=== PATIENT | female | born 1965 | race Caucasian/White ===

== ENCOUNTER 2020-10-24 05:40 | Observation (INO) ==
--- NOTE | 2020-09-25 16:00 | PAT Medication Instructions ---
Medication Instructions Date of Service September 25, 2020 Home Medications coconut oil (bulk) 1 ea MISCELLANEOUS QAM darryl eaas-ikjwchyp-jbcyjzihs ac [[place] Oil] 1 cap PO QAM ibuprofen 600 mg PO QAM ASK your surgeon for instructions ibuprofen 600 mg PO QAM STOP taking 2 weeks before surgery If surgery is within 2 weeks, stop taking as soon as possible. darryl pshg-ucpewaly-mwossirfm ac [[place]age Oil] 1 cap PO QAM DO NOT take the morning of surgery coconut oil (bulk) 1 ea MISCELLANEOUS QAM Other Notes NOTHING TO EAT OR DRINK AFTER MIDNIGHT. If you have any questions please call us at [phone] or [phone] or [phone] or [phone]
--- NOTE | 2020-09-26 09:26 | Anesthesiology Consultation ---
Date of Service September 26, 2020 Assessment & Plan (1) Encounter for pre-operative examination: COVID Status: As of 09/26 assessment, patient denies travel to endemic area, known exposure/sick contacts, or symptoms of COVID19. Patient advised to adhere to social distancing guidelines, wear a mask in public and avoid large crowds or unnecessary travel in the 2 weeks leading up to surgery. Preoperative COVID19 testing to be completed prior to surgery per surgeon's arrangements (10/22 at [facility]). Patient encouraged to be extra cautious/conscientious with COVID precautions between COVID testing and surgery. Pt to get second COVID vaccine 10/10. Chart Review Chart Review: Acceptable Risk for Surgery and Patient seen in Pre Admission Testing Teaching & Discussion Instructed NPO after midnight before surgery, except medications with 15 cc of water. Medication instructions provided according to the PAT guidelines. History Surgery Operation Date: 10/24/20 11:40 Proposed Procedures p Right Total Shoulder Arthroplasty Leon - Travon White, Height/Weight Height: 5 ft 5 in Weight: 77.7 kg Allergies Allergy/AdvReac Type Severity Reaction Status Date / Time animal dander Allergy Intermediate SHORTNESS Verified 09/25/20 13:53 OF BREATH latex Allergy Mild RASH Verified 09/25/20 13:53 mold Allergy Unknown asthma Verified 09/25/20 13:53 symptoms Penicillins Allergy Unknown CHILD Verified 09/25/20 13:53 ALLERGY Dust Allergy Unknown asthma Uncoded 09/25/20 13:53 symptoms Medications Home Medications Medication Instructions Recorded Confirmed Last Taken coconut oil (bulk) 1 ea MISCELLANEOUS QAM 03/12/19 09/25/20 Unknown darryl jbqa-xdmxiphd-ddfnjroet ac 1 cap PO QAM 09/25/20 09/25/20 Unknown [[place] Oil] fluoxetine [Prozac] 20 mg PO HS 09/25/20 09/25/20 Unknown ibuprofen 600 mg PO QAM 09/25/20 09/25/20 Unknown Past Medical History Medical History Anxiety Asthma EXERCISE INDUCED-NO INHALERS Chronic back pain NECK Depression Osteoarthritis Exercise / Class Metabolic Activity II 4-5 Yardwork/Stairs/Walk up hill Past Family History Family History Mother Family history of reaction to anesthesia PONV SEVERE Grandmother (Maternal) Family history of diabetes mellitus Past Surgical History Surgical History Elective surgery CLAVICLE SURGERY H/O wrist surgery History of bilateral tubal ligation History of cholecystectomy History of colonoscopy History of elbow surgery R/L History of hysterectomy History of laparotomy MULTIPLE FOR ENDOMETRIOSIS History of shoulder surgery R/L History of sinus surgery History of vaginal surgery Nausea and vomiting after administration of anesthetic agent NAUSEA ONLY, HAS BEEN RELIEVED WITH SCOP PATCH Past Anesthesia History No Hx of Anesthesia Complications (other than nausea) and No Family Hx of Anesthesia Complications (other than PONV) History of PONV History of PONV (nausea only) and Hx of Motion Sickness Social History Smoking Status: Never smoker Do You Dip or Chew Tobacco: No Hx Alcohol Use: Yes Alcohol type: wine alcohol intake frequency: a few times a week Hx Substance Use: No Review of Systems Pt denies any recent chest pain, shortness of breath, palpitations, cough, fever, URI, or uncontrolled acid reflux. Physical Exam Vital Signs BP: 129/82 P: 72bpm SPO2: 99% RA T: 98.4 F R: 16 ENMT Mouth: + chipped teeth (lower R molar); no loose teeth Thyromental Distance: > or= 3.5 Finger Breadths Mallampati Class: II Neck normal visual inspection and + limited neck extension (mildly) Respiratory normal respiratory effort, lungs clear to auscultation Cardiovascular RRR, no murmur, no edema Lab Results Anesthesia Preop Results Results Anesthesia Widget: WBC 5.66 K/uL (4.8-10.8) 09/26/20 Hgb 13.6 g/dL (12.0-16.0) 09/26/20 Hct 40.4 % (37-47) 09/26/20 Plt 304 K/uL (130-400) 09/26/20 Na 136 mmol/L (136-145) 09/26/20 K 3.8 mmol/L (3.5-5.1) 09/26/20 Cl 104 mmol/L (98-107) 09/26/20 CO2 26 mmol/L (21-32) 09/26/20 BUN 12 mg/dl (7-18) 09/26/20 Creat 0.73 mg/dl (0.6-1.2) 09/26/20 Glucose Level 84 mg/dl (70-99) 09/26/20 PT 10.0 Seconds (9.0-12.0) 09/26/20 PTT 26.8 Seconds (21.0-31.0) 09/26/20 INR 1.0 (0.9-1.1) 09/26/20 Blood Type O Positive 09/26/20 Antibody Screen NEGATIVE 09/26/20 Testing Electrocardiogram Date: 09/26/20 Findings: + SB @ (59bpm) Minor nonspecific T wave abnormality anterior leads. Compared to EKG of 08/29/2017, minor nonspecific T wave abnormality in anterior leads is now present. Chest X-Ray Date: 09/26/20 Findings: + NAD
--- NOTE | 2020-10-23 06:53 | History & Physical Report ---
Date of Service October 23, 2020 Assessment & Plan (1) Rotator cuff tear, right: We will proceed with a right reverse shoulder replacement. Postoperatively she will be kept overnight in the hospital for postoperative medical management. She plans to use energy physical therapy upon discharge. History of Present Illness Chief Complaint: Chronic retracted right rotator cuff tear. Primary Care Provider: Sienna Collier DO Lisbet is a pleasant 55-year-old female who is been doing with chronic worsening right shoulder pain. I did a right shoulder arthroscopy for decompression and biceps tenodesis in 2017. She did well initially postoperatively. Unfortunately her symptoms have worsened over the past few years. She denies any traumas. She is taken a lot of time off of work due to her shoulder pain. She has difficulty reaching away from her body or up overhead. She has become more more frustrated with her shoulder. I sent her for an MRI and the MRI shows a chronic retracted supraspinatus tear and some mild to moderate arthritis. We talked extensively about it in the office. We talked about superior capsular reconstruction. We also talked about reverse shoulder replacement. She was very interested in the reverse shoulder replacement. We talked about the risks and benefits including her age and she elected to proceed.. Allergies Allergy/AdvReac Type Severity Reaction Status Date / Time animal dander Allergy Intermediate SHORTNESS Verified 09/25/20 13:53 OF BREATH latex Allergy Mild RASH Verified 09/25/20 13:53 mold Allergy Unknown asthma Verified 09/25/20 13:53 symptoms Penicillins Allergy Unknown CHILD Verified 09/25/20 13:53 ALLERGY Dust Allergy Unknown asthma Uncoded 09/25/20 13:53 symptoms Home Medications Medication Instructions Recorded Confirmed Type coconut oil (bulk) 1 ea MISCELLANEOUS QAM 03/12/19 09/25/20 History darryl iewm-dnhcyzjt-cmpvbnmdq ac 1 cap PO QAM 09/25/20 09/25/20 History [[place] Oil] fluoxetine [Prozac] 20 mg PO HS 09/25/20 09/25/20 History ibuprofen 600 mg PO QAM 09/25/20 09/25/20 History Past Med/Surg History Medical History Anxiety Asthma EXERCISE INDUCED-NO INHALERS Chronic back pain NECK Depression Osteoarthritis Surgical History Elective surgery CLAVICLE SURGERY H/O wrist surgery History of bilateral tubal ligation History of cholecystectomy History of colonoscopy History of elbow surgery R/L History of hysterectomy History of laparotomy MULTIPLE FOR ENDOMETRIOSIS History of shoulder surgery R/L History of sinus surgery History of vaginal surgery Nausea and vomiting after administration of anesthetic agent NAUSEA ONLY, HAS BEEN RELIEVED WITH SCOP PATCH Family History Mother Family history of reaction to anesthesia PONV SEVERE Grandmother (Maternal) Family history of diabetes mellitus Social History Smoking Status: Never smoker Second Hand Exposure: No; Hx Alcohol Use: Yes Alcohol type: wine Hx Substance Use: No Preferred Language: Bulgarian Communication Ability: Effective Motor Polarizer Required: No Beliefs That Will Affect Care: None Current Living Situation: Spouse current occupational status: employed current occupation: [employer] Feels Safe at Home: Yes Assistive Devices: Glasses Review of Systems All systems reviewed & are unremarkable except as noted in HPI & below. Physical Exam On physical examination of the right shoulder, she cannot do any active forward elevation in the office. Passively I can go a bit further but she does not get much effort because she is having so much pain. 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 She is a lot of pain in the subacromial space.. Constitutional WD/WN, vitals as above Eyes PERRL, conjunctivae normal, anicteric sclerae ENMT external ear and nose normal, oropharynx normal Neck trachea midline, no thyromegaly Respiratory normal respiratory effort Cardiovascular RRR, no murmur, no edema Gastrointestinal (Abdomen) normal bowel sounds, soft, nontender, no hepatosplenomegaly Psychiatric A+Ox3, euthymic affect Results & Data Results & Data Laboratory Results . Diagnostic Findings MRI of the right shoulder show some mild to moderate arthritis and a chronic retracted tear of the supraspinatus.. PG Care Time/CCT Total # of Minutes Spent Total Time Spent with Patient: Total time spent is greater than 50% in coordination of care (as documented) at patient's floor/unit and/or counseling patient: Coding Level of Care Code None Diagnoses Rotator cuff tear, right M75.101
[2020-10-24] MEDS ORDERED: ROPIVACAINE 0.5% HCL/PF 150 MG, BUPIVACAINE 0.75% MPF 20 ML, EPINEPHrine 30MG/30ML (OR ... INSTIL SCH (06:00)
[2020-10-24] MEDS ORDERED: FAMOTIDINE 20 MG TAB PO SCH ×2 (06:00)
[2020-10-24] MEDS ORDERED: dexAMETHasone 4 MG TAB PO SCH ×2 (06:00)
[2020-10-24] MEDS ORDERED: TRANEXAMIC ACID 1,000 MG **IV Pre-op IV SCH ×2 (06:00)
[2020-10-24] MEDS ORDERED: ceFAZolin 1000MG 1,000 MG/7.5 ML SYR IV SCH (06:00)
[2020-10-24] MEDS ORDERED: LR 60ML/HR IV SCH ×2 (06:00)
[2020-10-24] MEDS ORDERED: Scopolamine 1 MG TDSY TD SCH (06:00)
[2020-10-24] MEDS ORDERED: TRANEXAMIC ACID 1,000 MG **IV Intra-op IV SCH ×2 (06:00)
[2020-10-24] MEDS ORDERED: GABAPENTIN 600 MG DOSE PO SCH ×2 (06:00)
[2020-10-24] MEDS ORDERED: ACETAMINOPHEN 500 MG TAB PO SCH ×2 (06:00)
[2020-10-24] MEDS ORDERED: SUCCINYLCHOLINE CHLORIDE 20 MG/ML 10 ML VIAL IV ONE (06:26)
[2020-10-24] MEDS ORDERED: ONDANSETRON INJ 2 MG/ML 2 ML VIAL ONE (06:26)
[2020-10-24] MEDS ORDERED: DEXAMETHASONE SOD INJ 4 MG/ML VIAL ONE (06:26)
[2020-10-24] MEDS ORDERED: PROPOFOL IV EMULSION 10 MG/ML 20 ML VIAL IV ONE (06:26)
[2020-10-24] MEDS ORDERED: MIDAZOLAM HCL 1 MG/ML 2ML VIAL ONE (06:26)
[2020-10-24] MEDS ORDERED: fentaNYL citrate 100 MCG/2 ML VIAL ONE (06:26)
[2020-10-24] MEDS ORDERED: BUPIVACAINE 0.5 % 5 MG/1 ML PF 10ML VIAL ONE (06:28)
--- NOTE | 2020-10-24 06:36 | History & Physical Bridge Note ---
Date of Service October 24, 2020 History & Physical Bridge Note I have examined the patient, reviewed the History & Physical and in the interval since the performance of the History & Physical I have noted the following changes of clinical significance: no changes noted
[2020-10-24] MEDS ORDERED: ePHEDrine sulfate 50 MG/ML AMP IV PRN (07:03)
[2020-10-24] MEDS ORDERED: ONDANSETRON INJ 2 MG/ML 2 ML VIAL IV PRN ×2 (07:03→11:14)
[2020-10-24] MEDS ORDERED: fentaNYL citrate 100 MCG/2 ML VIAL IV PRN (07:03)
[2020-10-24] MEDS ORDERED: ATROPINE SULFATE 0.1 MG/ML 10ML SYR IV PRN (07:03)
[2020-10-24] MEDS ORDERED: ORTHO JOINT ANESTHETIC ONE (07:04)
[2020-10-24] MEDS ORDERED: PHENYLEPHRINE 100MCG/ML 5ML SYR ONE (08:25)
[2020-10-24] MEDS ORDERED: ePHEDrine sulfate 50 MG/ML SYR ONE (08:25)
--- NOTE | 2020-10-24 09:19 | Operative Report ---
PG Post Operative Report Pre & Post Diagnosis Operation Date: 10/24/20 07:55 Pre-Op Diagnosis: Rotator cuff arthropathy of the right shoulder Postoperative diagnosis: Rotator cuff arthropathy of the right shoulder I identified the patient and participated in the time-out.: Yes Procedure Operation Date: 10/24/20 07:55 Actual Procedures p Right Reverse Total Shoulder Arthroplasty(Right) - Travon White DO Surgeon Travon White, Business Proposal Rep Travon Valentine PAC Estimated Blood Loss 150 Findings Consistent with Post-Op Diagnosis Specimens Right humeral head Complications none Disposition Disposition: Recovery Room Indications Lisbet is a pleasant 55-year-old female has been dealing with chronic increasing right shoulder pain. MRI and clinical examination were mostly diagnostic for chronic retracted supraspinatus tear. There is little arthritis on the humeral head. After failing conservative treatment, and after multiple discussions in the office regarding her younger age, she wanted to proceed with a right reverse shoulder arthroplasty. Description of Procedure Implants used: I used a Biomet Comprehensive reverse total shoulder arthroplasty system with a size 9 press fit micro humeral stem, a +3 offset humeral tray and a standard humeral bearing, 25 mm small augment baseplate with a 6.5 mm central screw and superior and inferior locking screws, and a size 36 mm eccentric glenosphere. Lisbet arrived at [facility] for the above procedure. She was seen in the preoperative holding area and the operative extremity was identified and signed. She was given a preoperative antibiotic, TXA, and an interscalene nerve block. She was taken back to the operating room, laid on table in supine position, and put under general anesthesia. She was then put into the beachchair position. The shoulder was then prepped and draped in sterile fashion. A timeout was done and the patient and the operative extremity was properly identified. A deltopectoral approach was used. Dissection was taken down through the fascia and the deltoid was retracted laterally and the conjoined tendon was retracted medially. The anterior shoulder was exposed. The biceps tendon was absent from the previous open biceps tenodesis. The subscapularis was then directly released off the lesser tuberosity with a peel technique. The inferior capsule was released and the humeral head was dislocated. A canal finding reamer was sent down the center of the humeral canal. Sequential reaming up to a size 9 reamer was done. Off that reamer, a proximal humeral resection guide was placed. The proximal humerus was resected at 135 of inclination and 25 of retroversion. Osteophytes were then removed and the glenoid was exposed. Time was spent doing a complete capsular and labral release. The glenoid guide was then placed in the inferior aspect of the glenoid. A 3.2 mm Steinmann pin was then placed into the glenoid vault at 10 of inclination. The glenoid baseplate was then reamed. The final size 25 mm small augment baseplate was then impacted in the place. A 6.5 mm central screw was then placed followed by superior and inferior locking screws. A 36 mm eccentric glenosphere was then impacted into place. Surrounding soft tissues were then injected with 100 cc an orthopedic pain control cocktail. The proximal humerus was then exposed. Sequential broaching of the humerus up to a size 9 broach was done. Off that broach a +3 offset humeral tray was trialed. The shoulder was then reduced, brought through a full range of motion, and felt to be stable. The shoulder was then dislocated and the broach was removed. The final size 9 micro press-fit humeral stem was then impacted into place. A standard humeral bearing was then snapped onto a +3 offset humeral tray. The humeral tray was then impacted onto the humeral stem. The shoulder was once again reduced, brought through a full range of motion, and felt to be stable. The subscapularis was then tenodesed back to the lesser tuberosity with transosseous FiberWire sutures and side to side sutures with the arm in 45 of external rotation. A dilute betadyne lavage was then done for 3 minutes. The joint was then irrigated with normal saline solution. Hemostasis was obtained. The interval was closed with 2-0 Vicryl suture. The skin was then closed with 2-0 Vicryl and monique. A Silverlon dressing was placed and the arm was rested in a regular arm sling. She was then extubated and transferred to a hospital bed. She taken to the postanesthesia care unit in stable condition. She tolerated the procedure well. Travon Valentine PA-C, was present for the entire procedure. He was critical for patient positioning, prepping, draping, retraction exposure, wound closure and application of sterile dressing. I attest to the content of the Intraoperative Record and any orders documented therein. Any exceptions are noted below.
--- NOTE | 2020-10-24 10:20 | XRay Report ---
XR shoulder RT min 2V routine CLINICAL HISTORY: Post shoulder surgery COMPARISON: Right shoulder radiographs September 10, 2020. FINDINGS: Alignment of the reverse total right shoulder arthroplasty is anatomic. There are skin sta ples. There is no periprosthetic fracture. No unexpected radiopaque foreign bodies present. Right renee ast implant is incidentally noted. IMPRESSION: Expected findings following total right shoulder arthroplasty. ACT 112: Negative or not required by law. Electronically signed by: Karlos Kovacs M.D. 10/24/2020 10:18 AM
[2020-10-24] MEDS ORDERED: oxyCODONE HCL IR 5 MG TAB (IMMEDIATE RELEASE) PO PRN (11:14)
[2020-10-24] MEDS ORDERED: METOCLOPRAMIDE HCL INJ 5 MG/ML 2 ML VIAL IV PRN (11:14)
[2020-10-24] MEDS ORDERED: bisacodyL 10 MG SUPP PR PRN (11:14)
[2020-10-24] MEDS ORDERED: HYDROmorphone INJ 0.5 MG/0.5 ML SYR IV PRN (11:14)
[2020-10-24] MEDS ORDERED: MAGNESIUM HYDROXIDE SUSP 30 ML UDC PO PRN (11:14)
[2020-10-24] MEDS ORDERED: NALOXONE HCL 0.4 MG/1 ML VIAL/CARP IV PRN (11:14)
[2020-10-24] MEDS: ANCEF - ALLERGY NOTED TO ORDERED MEDICATION SCH ×2 (11:15→11:16)
[2020-10-24] MEDS: SODIUM CHLORIDE 0.9% 1000ML 1,000 ML IV SCH ×2 (12:45→20:47)
[2020-10-24] MEDS: KETOROLAC 30 MG/ML VIAL IV SCH ×3 (12:48→23:35)
--- NOTE | 2020-10-24 14:23 | Anesthesiology Progress Note ---
Date of Service October 24, 2020 Anesthesia Post Procedure Vital Signs Vital Signs: Temp Pulse Pulse Resp BP Pulse Ox 10/24/20 12:50 107 H 16 129/81 94 10/24/20 11:51 36.8 C 89 16 109/69 93 10/24/20 11:20 36.5 C 87 17 116/74 92 10/24/20 10:50 36.4 C L 100 H 16 122/81 91 10/24/20 10:38 93 H 20 115/74 93 10/24/20 10:30 36.3 C L 91 H 18 112/76 93 10/24/20 10:20 89 17 116/81 94 10/24/20 10:00 90 20 140/91 96 10/24/20 09:50 86 20 135/87 100 10/24/20 09:40 92 H 18 148/97 H 100 10/24/20 09:36 36.1 C L 99 H 20 136/97 99 10/24/20 06:10 37 C 74 18 121/81 98 Transfer of Care Handoff Completed per policy Notes Mental Status: alert / awake / arousable and participated in evaluation Patient Amnestic to Procedure: Yes Nausea / Vomiting: adequately controlled Pain: adequately controlled Airway Patency, RR, SpO2: stable & adequate BP & HR: stable & adequate Hydration State: stable & adequate Anesthetic Complications: no major complications apparent and Pt Satisfied with anesthetic care
[2020-10-24] MEDS: ACETAMINOPHEN 500 MG TAB PO SCH ×2 (14:49→20:50)
[2020-10-24] MEDS ORDERED: Scopolamine CHECK PATCH PLACEMENT SCH (16:00)
[2020-10-24] MEDS: ceFAZolin 2000MG 2,000 MG/15 ML SYR IV SCH ×2 (17:56→23:35)
[2020-10-24] MEDS: DOCUSATE SODIUM 100 MG CAP PO SCH (20:49)
[2020-10-24] MEDS ORDERED: FLUoxetine HCL 20 MG CAP PO SCH (21:00)
[2020-10-24] MEDS ORDERED: SENNA 8.6 MG TAB PO SCH (21:00)
[2020-10-25] MEDS: KETOROLAC 30 MG/ML VIAL IV SCH (05:59)
[2020-10-25] MEDS: ACETAMINOPHEN 500 MG TAB PO SCH (05:59)
[2020-10-25] MEDS ORDERED: FLUoxetine HCL 20 MG CAP PO SCH (06:00)
--- NOTE | 2020-10-25 07:49 | Orthopedic Progress Note ---
Date of Service October 25, 2020 Assessment & Plan (1) Status post reverse total replacement of right shoulder: Overall she is doing well. She is not any much pain in the right shoulder. She will be seen by physical therapy today for ambulation and range of motion exercises. She can be discharged home later today. She will follow- up with orthopedics in 2 weeks. Dash Frausto was seen and examined at bedside this morning. Overall she doing very well. She is not having any pain in the right shoulder. She was able to get some sleep last night. She has no complaints.. Review of Systems All systems reviewed & are unremarkable except as noted in HPI & below. Physical Exam On physical examination of the right shoulder, the dressing is clean and dry. She is wearing a sling as instructed. The nerve block is still in effect.. Results & Data Results & Data Laboratory Results . Diagnostic Findings Postoperative x-rays of the right shoulder show the prosthesis to be in anatomic alignment without any evidence of fracture, dislocation, or loosening. PG Care Time/CCT Total # of Minutes Spent Total Time Spent with Patient: Total time spent is greater than 50% in coordination of care (as documented) at patient's floor/unit and/or counseling patient: Coding Level of Care Code 76654 Post Operative Follow-Up Diagnoses Status post reverse total replacement of right shoulder Z96.611
--- NOTE | 2020-10-25 07:50 | Discharge Summary ---
Date of Service October 25, 2020 Admission HPI (Per Admitting) Lisbet is a pleasant 55-year-old female who is been doing with chronic worsening right shoulder pain. I did a right shoulder arthroscopy for decompression and biceps tenodesis in 2017. She did well initially postoperatively. Unfortunately her symptoms have worsened over the past few years. She denies any traumas. She is taken a lot of time off of work due to her shoulder pain. She has difficulty reaching away from her body or up overhead. She has become more more frustrated with her shoulder. I sent her for an MRI and the MRI shows a chronic retracted supraspinatus tear and some mild to moderate arthritis. We talked extensively about it in the office. We talked about superior capsular reconstruction. We also talked about reverse shoulder replacement. She was very interested in the reverse shoulder replacement. We talked about the risks and benefits including her age and she elected to proceed.. Admission Exam (Per Admitting) On physical examination of the right shoulder, she cannot do any active forward elevation in the office. Passively I can go a bit further but she does not get much effort because she is having so much pain. 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 She is a lot of pain in the subacromial space.. Principal Diagnosis Same as "Discharge Diagnosis" noted below under Discharge Instructions. Discharge Exam On physical examination of the right shoulder, the dressing is clean and dry. She is wearing a sling as instructed. The nerve block is still in effect.. Discharge Data Procedures Performed Operation Date: 10/24/20 07:55 Actual Procedures p Right Reverse Total Shoulder Arthroplasty(Right) - Travon White DO Ordered Studies 10/24/20 05:00 US - OR guided needle [facility] Routine Hospital Course (1) Status post reverse total replacement of right shoulder: Patient Ahmet October 24, 2020 Lisbet arrived at [facility] and underwent a right reverse shoulder replacement without complication. She had a general anesthetic and a right interscalene nerve block. Postoperatively sling and transferred to the general orthopedic floors. Her hospital course was uneventful. On postop day #1 her vital signs were stable and her pain was well controlled. She was able to position his gait well with physical therapy doing ambulation and range of motion exercises. She was then discharged home. She will follow-up with orthopedics in 2 weeks. PG Care Time/CCT Total # of Minutes Spent Total Time Spent with Patient: Total time spent is greater than 50% in coordination of care (as documented) at patient's floor/unit and/or counseling patient: Discharge Plan Discharge Items Patient Disposition: Home - Home Health Services Reason For Visit: DJD Shoulder Rotator Cuff Tear Right Discharge Diagnosis: Right reverse shoulder replacement Activity: As commented below Non-emergency contact: Surgeon Call non-emergency contact if: your wound has increased redness and your wound has increased drainage Follow-up/Referrals: Sienna Collier DO [Primary Care Provider] - Diet: Regular Addtl Attending Provider Instructions: Activity and Therapy Recommendations: * If you are using [facility] then therapy will be provided at your home until they feel you have accomplished all of your goals. * If you are using [facility] then Physical Therapy will be provided until they feel you are ready to start Outpatient Physical Therapy. * If you are not using home therapy then Outpatient Physical Therapy should start about 3-5 days from your day of surgery. Therapy will last about 8-12 weeks * Wear your sling for 3 weeks, unless otherwise instructed. You may remove your sling to shower and to dress, but otherwise, you should be in your sling at all times, including while sleeping * The shoulder replacement is very stable and you can use your hand while in the sling * You were shown a series of exercises in the hospital. Do these exercises daily including the exercises you were shown in physical therapy. Medications: * Narcotic You will likely be sent home from the hospital with a prescription for the narcotic pain medication that worked best throughout your stay. * Other medications may be prescribed for specific circumstances. If you have any questions, please call the office at . * Resume previous home medications unless otherwise instructed Dressing Care: Leave the Silverlon dressing in place for 7 days. After 7 days you may remove the dressing. If the incision is not draining then you may leave the monique open to air. If there is a little bit of drainage or if the monique are getting stuck on your clothing then cover the incision with a dry dressing. The monique will be removed at your 2 week follow-up appointment. Showering: You may shower with the Silverlon dressing in place. Do not let the shower spray hit the dressing directly. Pat the Silverlon dressing dry. If the dressing becomes wet underneath, then simply remove the dressing. Keep the incision dry until you are 7 days out from the day of surgery. After 7 days you may remove the Silverlon dressing and shower with the monique exposed. Let soapy water run over the monique and pat them dry. Do not scrub or soak the incision. Things To Watch For: * Drainage from the incision site that occurs more than one week after your surgery. * Increased redness at the incision site. * Fever above 102 degrees Fahrenheit. * Unusual chest pain or shortness of breath. * Call [facility] at with any of the above problems Follow-Up Visit: Follow-up with Dr. White's PA (Travon Valentine) 2-3 weeks after your day of surgery. He will remove your monique and answer any questions. If you have any additional questions or concerns, Dr White is usually in the office at the same time and will be available An appointment was probably scheduled when you signed-up for surgery in the office. If you have any questions call More detailed instructions as well as Frequently Asked Questions were provided in a folder by our office when you signed-up for surgery. Please review these instructions when you get home. If you have any further questions or concerns, please feel free to call the office at [phone] Pending Studies at Discharge: No Stand-Alone Forms: [facility], Smoking Cessation Medications and DC Order Prescriptions: New oxycodone 5 mg Tablet 5 mg PO Q4H PRN (Reason: pain) Qty: 30 RF: 0 Continued coconut oil (bulk) oil 1 ea miscellaneous QAM RF: 0 ibuprofen 600 mg Tablet 600 mg PO QAM RF: 0 fluoxetine [Prozac] 20 mg Capsule 20 mg PO 0600 RF: 0 [place] Oil 1,000 mg Capsule 1 cap PO QAM RF: 0 Discharge Orders: Discharge Order (Routine); Ordered 10/25/20 Ordered By: Travon White Admission Data Admit Date/Time: 10/24/20 09:35 Attending Provider: Travon White Admit Provider: Travon White Primary Care Provider: Sienna Collier
[2020-10-25] MEDS ORDERED: dexAMETHasone 4 MG TAB PO SCH (08:00)
[2020-10-25] MEDS: DOCUSATE SODIUM 100 MG CAP PO SCH (08:47)
[2020-10-25] MEDS ORDERED: MULTIVITAMIN TAB PO SCH (09:00)
== END 2020-10-25 10:37 | disposition home or self-care (01) ==
LOC: ASU 05:40 → 3E 09:35 → INTOOBSV 09:35

== ENCOUNTER 2022-07-30 08:26 | Observation (INO) ==
--- NOTE | 2022-06-28 10:06 | PAT Medication Instructions ---
Medication Instructions Date of Service June 28, 2022 Home Medications Collagen Chews 2 tab PO QAM ibuprofen 125 mg-acetaminophen 250 mg tablet (Advil Dual Action) 1 tab PO Q8H PRN ASK your surgeon for instructions ibuprofen 125 mg-acetaminophen 250 mg tablet (Advil Dual Action) 1 tab PO Q8H PRN STOP taking 2 weeks before surgery (or as soon as possible if surgery is within 2 weeks) Collagen Chews 2 tab PO QAM Other Notes NOTHING TO EAT OR DRINK AFTER MIDNIGHT. If you have any questions please call us at [phone] or [phone] or [phone] or [phone]
--- NOTE | 2022-07-08 09:51 | Anesthesiology Consultation ---
Date of Service July 08, 2022 Assessment & Plan (1) Encounter for pre-operative examination: Chart Review Chart Review: Acceptable Risk for Surgery and Patient seen in Pre Admission Testing - Pt is NOT an Outpatient Joint candidate due to no motivation to go home same day Per [facility] appt on 07/08/22, patient had recent cold (cough and congestion- symptoms have since resolved). Pt did test Covid negative with home test 06/25/22. Denies any recent travel or large group activities. Pt denies any Covid exposures in the past 21 days. Denies testing Covid positive in the past 90 days. Pt is vaccinated for Covid. Preop Covid testing done (due to symptoms and patient being inpatient status) at [facility] 07/08/22= negative. Educated on importance of using Covid precautions one week prior to surgery Right Anterior NEHA 07/24/21= Done initially under SAB at L3-4 with 1 attempt. Pt converted to GA with LMA #4, atraumatic LMA placement. Teaching & Discussion Pre-Anesthesia Teaching/Discussion Notes: Instructed NPO after midnight before surgery,except medications with 15 cc of water. Medication instructions prov ided according to the [facility] guidelines. History Surgery Operation Date: 07/30/22 11:45 Proposed Procedures p Left Anterior Total Hip Arthroplasty - Travon White, DO Height/Weight Height: 5 ft 5 in Weight: 83.3 kg Allergies Allergy/AdvReac Type Severity Reaction Status Date / Time mold Allergy Severe asthma Verified 07/08/22 09:44 symptoms animal dander Allergy Unknown SHORTNESS Verified 06/28/22 07:43 OF BREATH house dust Allergy Unknown asthma Verified 06/28/22 07:43 symptoms latex Allergy Unknown RASH Verified 06/28/22 07:43 Penicillins Allergy Unknown UNSURE , Verified 06/28/22 07:43 CHILD ALLERGY Medications Home Medications Medication Instructions Recorded Confirmed Last Taken Collagen Chews 2 tab PO QAM 06/30/21 06/28/22 07/23/21 07:00 ibuprofen 125 mg-acetaminophen 250 1 tab PO Q8H PRN Pain 06/28/22 06/28/22 Unknown mg tablet (Advil Dual Action) Past Medical History Medical History Anxiety Arthritis NECK/LIMTED ROM Asthma - EXERCISE/ENVIRONMENTAL INDUCED-NO INHALERS Coughing at night- secondary pets in bed Depression Fibromyalgia DX WITH 20 YR AGO Stable - mild muscle pain Scoliosis Exercise / Class Metabolic Activity II 4-5 Yardwork/Stairs/Walk up hill (one flight of stairs - no chest pain or SOB ) Past Family History Family History Mother Family history of reaction to anesthesia PONV SEVERE Grandmother (Maternal) Family history of diabetes mellitus Other Family history of lung cancer Family history of throat cancer Past Surgical History Surgical History Elective surgery CLAVICLE SURGERY H/O wrist surgery History of bilateral tubal ligation History of cholecystectomy History of colonoscopy History of elbow surgery R/L History of hysterectomy History of laparotomy MULTIPLE FOR ENDOMETRIOSIS History of reverse total replacement of right shoulder joint OCTOBER 24 2020 History of shoulder surgery R/L History of sinus surgery History of vaginal surgery Nausea and vomiting after administration of anesthetic agent NAUSEA ONLY, HAS BEEN RELIEVED WITH SCOPE PATCH Status post right hip replacement Past Anesthesia History No Hx of Anesthesia Complications (with exception to PONV ) and No Family Hx of Anesthesia Complications (with exception to mother - PONV ) History of PONV History of PONV (improved with scopolamine patch and anti nausea cocktail - scop patch ordered for DOS) and Hx of Motion Sickness Social History Smoking Status: Never smoker Do You Dip or Chew Tobacco: No Hx Alcohol Use: No Hx Substance Use: No substance use type: does not use Review of Systems Patient denies chest pain, shortness of breath, dyspnea on exertion, reflux, cough, wheezing, palpitations. No hx of seizures, stroke, SD, apnea/snoring. No hx of blood clots or blood transfusions Physical Exam Vital Signs VITALS BP 117/82 P 96bpm TEMP 98.2 SP02 97% RESP 6 Constitutional no acute distress ENMT Mouth: no TMJ clicking Thyromental Distance: > or= 3.5 Finger Breadths Mallampati Class: III Neck + limited neck extension Respiratory normal respiratory effort; no respiratory distress Auscultation: lungs clear to auscultation bilaterally; no wheezes Cardiovascular Rate/Rhythm: regular rate and regular rhythm Heart Sounds: no murmur Vessels: no carotid bruit Musculoskeletal Spine: no pain with cervical ROM Extremities: extremities normal to inspection Psychiatric Orientation: alert Lab Results Anesthesia Preop Results Results Anesthesia Widget: WBC 8.29 K/ul (4.8-10.8) 07/08/22 Hgb 14.8 g/dl (12.0-16.0) 07/08/22 Hct 42.8 % (37.0-47.0) 07/08/22 Plt 379 K/uL (130-400) 07/08/22 Na 134 mmol/L (136-145) L 07/08/22 K 4.0 mmol/L (3.5-5.1) 07/08/22 Cl 100 mmol/L (98-107) 07/08/22 CO2 28 mmol/L (21-32) 07/08/22 BUN 17 mg/dl (6-23) 07/08/22 Creat 0.73 mg/dl (0.6-1.2) 07/08/22 Glucose Level 90 mg/dl (70-99(Fasting)) 07/08/22 PT 10.2 Seconds (9.0-12.0) 07/08/22 PTT 27.3 Seconds (21.0-31.0) 07/08/22 INR 1.0 (0.9-1.1) 07/08/22 Blood Type O Positive 07/08/22 Antibody Screen NEGATIVE 07/08/22 Testing Electrocardiogram Date: 07/08/22 Findings: + NSR @ (79bpm) When compared to EKG from Feb 12, 2022- no significant change as found per cardio Chest X-Ray Date: 02/12/22 Findings: + NAD Stress Test Date: 02/12/22 Type: exercise (ECHO ) Resting EF: 55 to 60% Resting LV Function: normal Valvular Disease: no significant valvular disease Stress echocardiogram is negative for inducible ischemia at the level of exercise achieved, with normal EKG and echocardiographic response to exercise. 6 METS achieved. MPHR 86%. Exercise test was terminated due to right hip pain having achieved target heart rate. Patient describes chest tightness with deep inspiration in the postexercise recovery interval, this is reminiscent of her longstanding asthma symptoms and was atypical in character for angina. Other Testing Chest CTA 02/12/22= No evidence of pulmonary embolism. No acute abnormalities are seen..
--- NOTE | 2022-07-29 13:32 | History & Physical Report ---
Date of Service July 29, 2022 Assessment & Plan (1) Osteoarthritis of left hip: We will proceed with a left anterior total of arthroplasty. Postoperatively she will be started on aspirin for DVT prophylaxis and kept overnight in the hospital for postoperative medical management. She plans [facility] upon discharge. History of Present Illness Chief Complaint: Osteoarthritis of the left hip. Primary Care Provider: Sienna Collier DO Lisbet is a pleasant 57-year-old female who is well known to me. I did a right hip replacement on her in July 2021 and she has done very well with that. Unfortunately, she is dealing with chronic worsening left hip pain. X-rays have shown worsening osteoarthritis of her left hip. After failing conservative treatment, she has elected proceed with a left total hip arthroplasty. Allergies Allergy/AdvReac Type Severity Reaction Status Date / Time mold Allergy Severe asthma Verified 07/08/22 09:44 symptoms animal dander Allergy Unknown SHORTNESS Verified 06/28/22 07:43 OF BREATH house dust Allergy Unknown asthma Verified 06/28/22 07:43 symptoms latex Allergy Unknown RASH Verified 06/28/22 07:43 Penicillins Allergy Unknown UNSURE , Verified 06/28/22 07:43 CHILD ALLERGY Home Medications Medication Instructions Recorded Confirmed Type Collagen Chews 2 tab PO QAM 06/30/21 06/28/22 History ibuprofen 125 mg-acetaminophen 250 1 tab PO Q8H PRN Pain 06/28/22 06/28/22 History mg tablet (Advil Dual Action) Past Med/Surg History Medical History Anxiety Arthritis NECK/LIMTED ROM Asthma - EXERCISE/ENVIRONMENTAL INDUCED-NO INHALERS Coughing at night- secondary pets in bed Depression Fibromyalgia DX WITH 20 YR AGO Stable - mild muscle pain Scoliosis Surgical History Elective surgery CLAVICLE SURGERY H/O wrist surgery History of bilateral tubal ligation History of cholecystectomy History of colonoscopy History of elbow surgery R/L History of hysterectomy History of laparotomy MULTIPLE FOR ENDOMETRIOSIS History of reverse total replacement of right shoulder joint OCTOBER 24 2020 History of shoulder surgery R/L History of sinus surgery History of vaginal surgery Nausea and vomiting after administration of anesthetic agent NAUSEA ONLY, HAS BEEN RELIEVED WITH SCOPE PATCH Status post right hip replacement Family History Mother Family history of reaction to anesthesia PONV SEVERE Grandmother (Maternal) Family history of diabetes mellitus Other Family history of lung cancer Family history of throat cancer Social History Smoking Status: Never smoker Second Hand Exposure: No; Hx Alcohol Use: No Hx Substance Use: No Preferred Language: Faroese Communication Ability: Effective Collar Packer Required: No Beliefs That Will Affect Care: None marital status: Current Living Situation: Spouse current occupational status: employed current occupation: [employer] Feels Safe at Home: Yes Assistive Devices: Glasses Review of Systems All systems reviewed & are unremarkable except as noted in HPI & below. Physical Exam On physical examination of the left hip, she has decreased range of motion. She has pain with internal and external rotation. All of her pain is located in the groin.. Constitutional WD/WN, vitals as above Eyes PERRL, conjunctivae normal, anicteric sclerae ENMT external ear and nose normal, oropharynx normal Neck trachea midline, no thyromegaly Respiratory normal respiratory effort, lungs clear to auscultation Cardiovascular RRR, no murmur, no edema Gastrointestinal (Abdomen) normal bowel sounds, soft, nontender, no hepatosplenomegaly Skin no rashes, warm and dry Psychiatric A+Ox3, euthymic affect Results & Data Results & Data Laboratory Results . Diagnostic Findings X-rays of the left hip show advanced osteoarthritis with joint space narrowing, osteophyte formation, and [id number] articulation. PG Care Time/CCT Total # of Minutes Spent Total Time Spent with Patient: Total time spent is greater than 50% in coordination of care (as documented) at patient's floor/unit and/or counseling patient: Coding Level of Care Code None Diagnoses Osteoarthritis of left hip M16.12
[~2022-07-30 08:26] MED LIST: ACETAMINOPHEN 500 MG TAB PO SCH; BUPIVACAINE 0.5 % 5 MG/1 ML PF 10ML VIAL ONE; FAMOTIDINE 20 MG TAB PO SCH; GABAPENTIN 600 MG DOSE PO SCH; LR 15ML/HR IV SCH; LR 60ML/HR IV SCH; MIDAZOLAM HCL 1 MG/ML 2ML VIAL ONE; ORTHO JOINT MIX INFIL SCH; TRANEXAMIC ACID 1,000 MG **IV Intra-op IV SCH; TRANEXAMIC ACID 1,000 MG **IV Pre-op IV SCH; ceFAZolin 2000MG 2,000 MG/15 ML SYR IV SCH; dexAMETHasone 4 MG TAB PO SCH
--- NOTE | 2022-07-30 09:20 | History & Physical Bridge Note ---
Date of Service July 30, 2022 History & Physical Bridge Note I have examined the patient, reviewed the History & Physical and in the interval since the performance of the History & Physical I have noted the following changes of clinical significance: no changes noted
[2022-07-30] MEDS ORDERED: fentaNYL citrate PF 100 MCG/2 ML VIAL IV PRN (09:26)
[2022-07-30] MEDS ORDERED: ONDANSETRON INJ 2 MG/ML 2 ML VIAL IV PRN ×2 (09:26→14:18)
[2022-07-30] MEDS ORDERED: ATROPINE SULFATE 0.1 MG/ML 10ML SYR IV PRN (09:26)
[2022-07-30] MEDS ORDERED: ePHEDrine sulfate 50 MG/ML AMP IV PRN (09:26)
[2022-07-30] MEDS ORDERED: SCOPOLAMINE 1 MG TDSY TD ONE (09:26)
[2022-07-30] MEDS ORDERED: HYDROmorphone INJ 2 MG/ML SYR/VIAL IV PRN (09:26)
[2022-07-30] MEDS ORDERED: ORTHO JOINT ANESTHETIC ONE (10:19)
[2022-07-30] MEDS ORDERED: MIDAZOLAM HCL 1 MG/ML 2ML VIAL ONE (10:40)
--- NOTE | 2022-07-30 11:42 | Operative Report ---
PG Post Operative Report Pre & Post Diagnosis Operation Date: 07/30/22 10:35 Pre-Op Diagnosis: Dejenerative Joint Disesase Left Hip Post-Op Diagnosis: Dejenerative Joint Disesase Left Hip I identified the patient and participated in the time-out.: Yes Procedure Operation Date: 07/30/22 10:35 Actual Procedures p Left Anterior Total Hip Arthroplasty(Left) - Travon White DO Surgeon Travon White DO Tractor Engine Assembler Travon Valentine PA-C Estimated Blood Loss 250 Findings Consistent with Post-Op Diagnosis Specimens Left femoral head Description of Procedure Implants used I used a ZimmerBiomet total hip arthroplasty system with a size 3 high offset Avenir Complete stem, a 50 mm G7 cup with a 25mm screw, an E1 polyethylene liner, a 36 mm ceramic head with a +3.5 neck. Lisbet arrived at the hospital for the above procedure. She was seen in the preoperative holding area and the operative extremity was identified and signed. She was given a spinal anesthetic, a preoperative antibiotic, and TXA. She was then taken back to the operating room and laid on the table in the supine position. She was given basic sedation. The operative leg was secured to a Puristst leg positioner. The hip was then prepped and draped in sterile fashion. A timeout was done and the patient and the operative extremity was properly identified. An anterior approach was used. Dissection was taken down through the fascia and the tensor muscle belly was retracted laterally and the rectus was retracted medially. The circumflex vessels were identified and ligated. The capsule was then incised and tagged for later repair. The femoral neck was then cut and the femoral head was removed. The acetabulum was exposed. Time was spent doing a complete circumferential labral release. Sequential reaming of the acetabulum up to a size 49 reamer was done. Final reamings were done under fluoroscopy to ensure appropriate version. A Biomet 50 mm G7 cup was then impacted into place. A single 25 mm screw was placed. The E1 polyethylene liner was then snapped into place. Surrounding soft tissues were then injected with 100 cc of an o rthopedic pain control cocktail. The proximal femur was then exposed. Sequential broaching up to a size 3 broach was done. Off that broach a size 36 head with a +3.5 neck was trialed. The hip was reduced and fluoroscopic images showed anatomic alignment of the implants in acceptable length. The broach was removed. The final size 3 high offset Avenir Complete stem was then impacted into place. A ceramic 36 mm head with a +3.5 neck was then impacted onto the stem and the hip was reduced. Final fluoroscopic images showed anatomic alignment of the hip. The capsule was then closed with #1 Vicryl suture. A dilute betadyne lavage was then done for 3 minutes. The joint was then irrigated with normal saline solution. The fascia was closed with #1 PDS suture. Skin was closed with 2-0 Vicryl, monique, and a Silverlon dressing. She was then transferred to a hospital bed and taken to the post anesthesia care unit in stable condition. She tolerated the procedure well. Travon Valentine PA-C, was present for the entire procedure. He was critical for patient positioning, prepping, draping, retraction exposure, wound closure and application of sterile dressing. I attest to the content of the Intraoperative Record and any orders documented therein. Any exceptions are noted below.
[2022-07-30] MEDS ORDERED: ONDANSETRON INJ 2 MG/ML 2 ML VIAL ONE (12:19)
[2022-07-30] MEDS ORDERED: PROPOFOL IV EMULSION 10 MG/ML 20 ML VIAL IV ONE (12:19)
[2022-07-30] MEDS ORDERED: PHENYLEPHRINE HCL 10 MG/ML VIAL ONE (12:19)
[2022-07-30] MEDS ORDERED: LIDOCAINE 2% MPF LOCAL 5 ML VIAL ONE (12:19)
--- NOTE | 2022-07-30 12:51 | Anesthesiology Progress Note ---
Date of Service July 30, 2022 Anesthesia Post Procedure Vital Signs Vital Signs: Temp Pulse Pulse Resp BP Pulse Ox O2 Del Method 07/30/22 12:25 68 15 115/90 100 Nasal Cannula 07/30/22 12:35 56 L 12 122/77 100 Nasal Cannula 07/30/22 12:15 68 17 116/76 99 Nasal Cannula 07/30/22 12:08 96.8 F L 74 19 116/87 92 Room Air 07/30/22 09:30 98.4 F 78 18 114/90 97 Room Air O2 Flow Rate 07/30/22 12:25 3 07/30/22 12:35 2 07/30/22 12:15 3 07/30/22 12:08 07/30/22 09:30 Transfer of Care Handoff Completed per policy Notes Mental Status: alert / awake / arousable and participated in evaluation Patient Amnestic to Procedure: Yes Nausea / Vomiting: adequately controlled Pain: adequately controlled Airway Patency, RR, SpO2: stable & adequate BP & HR: stable & adequate Hydration State: stable & adequate Neuraxial Anesthesia: was administered and sensory block is resolving Anesthetic Complications: no major complications apparent and Pt Satisfied with anesthetic care
--- NOTE | 2022-07-30 12:56 | XRay Report ---
AP PELVIS, CROSSTABLE LATERAL LEFT HIP History: Left total hip arthroplasty. Degenerative arthritis. Postop. FINDINGS: The patient is status post a left total hip arthroplasty. The hardware is intact. No fractu re or dislocation. Skin monique are in place. Prior right total hip arthroplasty is noted. IMPRESSION: Left total hip arthroplasty. No evidence for hardware complication. ACT 112: Negative or not required by law. Electronically signed by: Jovani Barnes M.D. 07/30/2022 12:55 PM
--- NOTE | 2022-07-30 14:02 | Fluoroscopy Report ---
FL hip LT 1V CLINICAL HISTORY: LEFT ANTERIOR HIP ARTHROPLASTY COMPARISON STUDY: None. FLUOROSCOPY TIME: 20 seconds FLUOROSCOPY IMAGES: 1 Ka,r: 4.2 mGy FINDINGS: There is a left total hip arthroplasty. The hardware appears intact. Irregularity at the gr eater trochanter is likely due to the expected postoperative changes. Otherwise, no fracture or dislo cation within the left hip. IMPRESSION: Fluoroscopic assistance as above ACT 112: Negative or not required by law. Electronically signed by: Jovani Barnes M.D. 07/30/2022 2:00 PM
[2022-07-30] MEDS ORDERED: HYDROmorphone INJ 0.5 MG/0.5 ML SYR IV PRN (14:18)
[2022-07-30] MEDS ORDERED: NALOXONE HCL 0.4 MG/1 ML VIAL/CARP IV PRN (14:18)
[2022-07-30] MEDS ORDERED: MAGNESIUM HYDROXIDE SUSP 30 ML UDC PO PRN (14:18)
[2022-07-30] MEDS ORDERED: METOCLOPRAMIDE HCL INJ 5 MG/ML 2 ML VIAL IV PRN (14:18)
[2022-07-30] MEDS ORDERED: SODIUM CHLORIDE 0.9% 1000ML 1,000 ML IV SCH (14:18)
[2022-07-30] MEDS ORDERED: bisacodyL 10 MG SUPP PR PRN (14:18)
[2022-07-30] MEDS: ACETAMINOPHEN 500 MG TAB PO SCH ×2 (14:57→21:29)
[2022-07-30] MEDS: KETOROLAC 30 MG/ML VIAL IV SCH ×2 (14:57→20:04)
[2022-07-30] MEDS ORDERED: CHECK SCOPOLAMINE PATCH PLACEMENT SCH (16:00)
[2022-07-30] MEDS: ceFAZolin 2000MG 2,000 MG/15 ML SYR IV SCH (17:59)
[2022-07-30] MEDS: oxyCODONE HCL IR 5 MG TAB (IMMEDIATE RELEASE) PO PRN (20:03)
[2022-07-30] MEDS: ASPIRIN 81 MG ECTAB PO SCH (20:04)
[2022-07-30] MEDS: DOCUSATE SODIUM 100 MG CAP PO SCH (20:04)
[2022-07-30] MEDS ORDERED: SENNA 8.6 MG TAB PO SCH (21:00)
[2022-07-31] MEDS: oxyCODONE HCL IR 5 MG TAB (IMMEDIATE RELEASE) PO PRN (01:04)
[2022-07-31] MEDS: ceFAZolin 2000MG 2,000 MG/15 ML SYR IV SCH (01:05)
[2022-07-31] MEDS: KETOROLAC 30 MG/ML VIAL IV SCH ×2 (01:55→08:51)
[2022-07-31] MEDS: ACETAMINOPHEN 500 MG TAB PO SCH (05:33)
--- NOTE | 2022-07-31 07:24 | Orthopedic Progress Note ---
Date of Service July 31, 2022 Assessment & Plan (1) Status post left hip replacement: Overall she is doing very well. She is not in much pain in her left hip. She will be seen by physical therapy today for ambulation and range of motion exercises. She is on aspirin for DVT prophylaxis. She can be discharged home later today. She will follow-up with orthopedics in 2 weeks. Dash Frausto was seen and examined at bedside this morning. Overall she is doing very well. She is not having much pain in the left hip. She has been up and ambulating. She has no complaints.. Review of Systems All systems reviewed & are unremarkable except as noted in HPI & below. Physical Exam On physical examination of the left hip, the dressing is clean and dry. Her leg is out full extension.. Results & Data Results & Data Laboratory Results . Diagnostic Findings Postoperative x-rays of the left hip show the prosthesis to be in anatomic alignment without any evidence of fracture, dislocation, or loosening.. PG Care Time/CCT Total # of Minutes Spent Total Time Spent with Patient: Total time spent is greater than 50% in coordination of care (as documented) at patient's floor/unit and/or counseling patient: Coding Level of Care Code 19038 Post Operative Follow-Up Diagnoses Status post left hip replacement Z96.642
--- NOTE | 2022-07-31 07:25 | Discharge Summary ---
Date of Service July 31, 2022 Admission HPI (Per Admitting) Lisbet is a pleasant 57-year-old female who is well known to me. I did a right hip replacement on her in July 2021 and she has done very well with that. Unfortunately, she is dealing with chronic worsening left hip pain. X-rays have shown worsening osteoarthritis of her left hip. After failing conservative treatment, she has elected proceed with a left total hip arthroplasty. Admission Exam (Per Admitting) On physical examination of the left hip, she has decreased range of motion. She has pain with internal and external rotation. All of her pain is located in the groin.. Principal Diagnosis Same as "Discharge Diagnosis" noted below under Discharge Instructions. Discharge Exam On physical examination of the left hip, the dressing is clean and dry. Her leg is out full extension.. Discharge Data Procedures Performed Operation Date: 07/30/22 10:35 Actual Procedures p Left Anterior Total Hip Arthroplasty(Left) - Travon White DO Ordered Studies 07/30/22 10:35 FL hip LT 1V Routine Hospital Course (1) Status post left hip replacement: On July 30, [address] [facility] and underwent a left hip replacement without complication. She had a spinal anesthetic. Postoperatively she was started on aspirin for DVT prophylaxis and transferred to the general orthopedic floors. Her hospital course was uneventful. On postop day #1, her vital signs were stable and her pain was well controlled. She was able to participate well with physical therapy doing ambulation and range of motion exercises. She was then discharged home. She will follow-up with orthopedics in 2 weeks. PG Care Time/CCT Total # of Minutes Spent Total Time Spent with Patient: Total time spent is greater than 50% in coordination of care (as documented) at patient's floor/unit and/or counseling patient: Discharge Plan Discharge Items Patient Disposition: Home - Home Health Services Reason For Visit: DJD Left Hip Discharge Diagnosis: Left hip replacement Activity: Per Instructions section Non-emergency contact: Surgeon Call non-emergency contact if: your wound has increased redness and your wound has increased drainage Follow-up/Referrals: Sienna Collier DO [Primary Care Provider] - Diet: Regular Addtl Attending Provider Instructions: Activity and Therapy Recommendations: * If you are using [facility] then therapy will be provided at your home until they feel you have accomplished all of your goals. * If you are using [facility] then Physical Therapy will be provided until they feel you are ready to start Outpatient Physical Therapy. * If you are not using home therapy then Outpatient Physical Therapy should start about 3-5 days from your day of surgery. Therapy will last about 6-10 weeks * You were shown a series of exercises in the hospital. Do these exercises three times each day including the exercises you were shown in physical therapy. * Get up and walk several times each day.~ For the first four weeks, try not to stand or walk for more than one hour at a time. If you do stand or walk for more than one hour, you will not hurt anything, but your leg will likely swell.~~ * As you feel comfortable, you may change from the walker or crutches to a cane and~then to independent walking. Medications: * Narcotic You will likely be sent home from the hospital with a prescription for the narcotic pain medication that worked best throughout your stay. * Aspirin Most patients will be required to take Aspirin 81mg twice a day for 6 weeks after surgery. This is obtained [id number] and a prescription is not necessary. * Other medications may be prescribed for specific circumstances. If you have any questions, please call the office at . * Resume previous home medications unless otherwise instructed TEDs/Elastic Stockings: The white elastic stockings help limit swelling and prevent blood clots from forming in your legs. The more you wear them, the more they work. Wear them for six weeks. Dressing Care: Leave the Silverlon dressing in place for 7 days. After 7 days you may remove the dressing. If the incision is not draining then you may leave the monique open to air. If there is a little bit of drainage or if the monique are getting stuck on your clothing then cover the incision with a dry dressing. The monique will be removed at your 2 week follow-up appointment. Showering: You may shower with the Silverlon dressing in place. Do not let the shower spray hit the dressing directly. Pat the Silverlon dressing dry. If the dressing becomes wet underneath, then simply remove the dressing. Keep the incision dry until you are 7 days out from the day of surgery. After 7 days you may remove the Silverlon dressing and shower with the monique exposed. Let soapy water run over the monique and pat them dry. Do not scrub or soak the incision. Things To Watch For: * Drainage from the incision site that occurs more than one week after your surgery. * Increased redness at the incision site. * Fever above 102 degrees Fahrenheit. * Unusual chest pain or shortness of breath. * Call [facility] at with any of the above problems Follow-Up Visit: Follow-up with Dr. White's PA (Travon Valentine) 2-3 weeks after your day of surgery. He will remove your monique and answer any questions. If you have any additional questions or concerns, Dr White is usually in the office at the same time and will be available An appointment was probably scheduled when you signed-up for surgery in the office. If you have any questions call Office Instructions: More detailed instructions as well as Frequently Asked Questions were provided in a folder by our office when you signed-up for surgery. Please review these instructions when you get home. If you have any further questions or concerns, please feel free to call the office at [phone] Pending Studies at Discharge: No Stand-Alone Forms: My [facility], Smoking Cessation Medications and DC Order Prescriptions: New aspirin 81 mg Tablet,Delayed Release (Dr/Ec) 81 mg PO BID 42 Days Qty: 84 0RF oxycodone-acetaminophen 5-325 mg tablet 1 tab PO Q6H PRN (Reason: pain) Qty: 30 0RF Continued Collagen Chews 2 tab PO QAM Advil Dual Action 125-250 mg Tablet 1 tab PO Q8H PRN (Reason: Pain) ibuprofen 200 mg Tablet 800 mg PO Q6H PRN (Reason: Pain) Admission Data Admit Date/Time: 07/30/22 12:09 Attending Provider: Travon White Admit Provider: Travon White Primary Care Provider: Sienna Collier
[2022-07-31] MEDS ORDERED: dexAMETHasone 4 MG TAB PO SCH (08:00)
[2022-07-31] MEDS: ASPIRIN 81 MG ECTAB PO SCH (08:50)
[2022-07-31] MEDS: DOCUSATE SODIUM 100 MG CAP PO SCH (08:51)
[2022-07-31] MEDS ORDERED: MULTIVITAMIN TAB PO SCH (09:00)
== END 2022-07-31 11:15 | disposition home health service (06) ==
LOC: ASU 08:26 → 3E 08:26

== ENCOUNTER 2024-08-27 10:52 | Observation (INO) ==
--- NOTE | 2024-07-20 16:07 | PAT Medication Instructions ---
Medication Instructions Date of Service July 20, 2024 Home Medications acetaminophen 650 mg tablet,extended release (Tylenol Arthritis Pain) 650 mg PO DAILY PRN Pain calcium carbonate 600 mg PO DAILY PRN bone health cefdinir 300 mg capsule 300 mg PO BID sinus infection fluoxetine 20 mg capsule 20 mg PO QAM fluoxetine 40 mg capsule 40 mg PO QAM meloxicam 15 mg tablet 15 mg PO QAM pseudoephedrine-ibuprofen 30 mg-200 mg capsule (Advil Cold and Sinus) 1 cap PO UD PRN sinusitis triamcinolone acetonide 0.5 % topical cream 1 applic topical DAILY PRN Skin Irritation Continue as directed cefdinir 300 mg capsule 300 mg PO BID sinus infection ASK your surgeon for instructions meloxicam 15 mg tablet 15 mg PO QAM pseudoephedrine-ibuprofen 30 mg-200 mg capsule (Advil Cold and Sinus) 1 cap PO UD PRN sinusitis STOP taking 24 hours before surgery triamcinolone acetonide 0.5 % topical cream 1 applic topical DAILY PRN Skin Irritation DO NOT take the morning of surgery calcium carbonate 600 mg PO DAILY PRN bone health Take morning of surgery With a small sip of water, OTHERWISE NOTHING TO EAT OR DRINK AFTER MIDNIGHT: acetaminophen 650 mg tablet,extended release (Tylenol Arthritis Pain) 650 mg PO DAILY PRN Pain (if needed) fluoxetine 20 mg capsule 20 mg PO QAM fluoxetine 40 mg capsule 40 mg PO QAM Take evening before surgery acetaminophen 650 mg tablet,extended release (Tylenol Arthritis Pain) 650 mg PO DAILY PRN Pain (if needed) calcium carbonate 600 mg PO DAILY PRN bone health (if needed) Other Notes If you have any questions please call us at [phone] or [phone] or [phone] or [phone]
--- NOTE | 2024-08-03 11:25 | Anesthesiology Consultation ---
Date of Service August 03, 2024 Assessment & Plan (1) Encounter for pre-operative examination: Chart Review Chart Review: Acceptable Risk for Surgery and Patient seen in Pre Admission Testing - Patient requests scopolamine patch for PONV (ordered for DOS) Pt currently scheduled as 23 hours observation. If surgeon decides to change patient to Same Day Joint, patient would be acceptable risk for TKA, pending patient is motivated, has good support and surgeon's office completes Same Day Joint Program preop requirements. Per PAT appt on 08/03/24, no recent illness/disease exposures, illness related symptoms, or recent illness/disease positive tests. Will leave to surgeon's discretion if preop Covid testing needed Left NEHA (anterior approach) 07/30/22= Done under SAB at L3-4. Patient with lots of phlegm in throat, states she can't swallow it. Suctioned, c/o trouble breathing. Sats 100%. Dr. Jenkins called, LMA placed for pt comfort prior to induction. History Surgery Operation Date: 08/27/24 12:00 Proposed Procedures p Left Total Knee Arthroplasty - Travon White, DO Height/Weight Height: 5 ft 4.75 in Weight: 78 kg Allergies Allergy/AdvReac Type Severity Reaction Status Date / Time mold Allergy Severe Asthma Verified 07/26/24 09:42 symptoms animal dander Allergy Unknown Shortness Verified 07/26/24 09:42 of breath house dust Allergy Unknown Asthma Verified 07/26/24 09:42 symptoms latex Allergy Unknown Rash Verified 07/26/24 09:42 Penicillins Allergy Unknown Unknown Verified 07/26/24 09:42 reaction (childhood) Medications Home Medications Medication Instructions Recorded Confirmed Last Taken acetaminophen 650 mg 650 mg PO DAILY PRN Pain 02/17/24 07/20/24 Unknown tablet,extended release (Tylenol Arthritis Pain) calcium carbonate 600 mg PO DAILY PRN bone health 02/17/24 07/20/24 Unknown cefdinir 300 mg capsule 300 mg PO BID sinus infection 07/20/24 07/20/24 Unknown fluoxetine 20 mg capsule 20 mg PO QAM 07/20/24 07/20/24 Unknown fluoxetine 40 mg capsule 40 mg PO QAM 07/20/24 07/20/24 Unknown meloxicam 15 mg tablet 15 mg PO QAM 07/20/24 07/20/24 Unknown pseudoephedrine-ibuprofen 30 1 cap PO UD PRN sinusitis 07/20/24 07/20/24 Unknown mg-200 mg capsule (Advil Cold and Sinus) triamcinolone acetonide 0.5 % 1 applic topical DAILY PRN Skin 07/20/24 07/20/24 Unknown topical cream Irritation Past Medical History Medical History Anxiety Arthritis Neck/limited ROM 07/20/24 > recently bilateral hands, problems causing inability to close hands due to increased swelling Asthma Exercise/environmental induced Coughing at night- secondary pets in bed Chronic back pain Neck/back Chronic sinusitis no illness symptoms currently Depression Fibromyalgia Dx 20+ years ago Stable - mild muscle pain Neuropathy of left thigh Since left NEHA (07/2022) Scoliosis Exercise / Class Metabolic Activity III < 4 Walking/Shop/Light housework (no SOB or chest pain with flat surface ambulation (does not do stairs due to knee pain but feels she would not have issues)) Past Family History Family History Mother Family history of reaction to anesthesia PONV SEVERE Grandmother (Maternal) Family history of diabetes mellitus Other Family history of lung cancer Family history of throat cancer Past Surgical History Surgical History H/O wrist surgery Bony cyst removed History of bilateral tubal ligation History of cholecystectomy History of colonoscopy (2021) History of elbow surgery R/L, done in accordance with each shoulder surgery History of esophagogastroduodenoscopy (EGD) History of hysterectomy vaginal History of laparotomy As teen, for endometriosis History of reverse total replacement of right shoulder joint (10/24/20) History of shoulder surgery R/L arthroscopy History of sinus surgery History of total left hip replacement Left NEHA (anterior approach): SAB at L3-4 at [facility] History of vaginal surgery revision after vaginal hysterectomy Hx of laparoscopy multiple Nausea and vomiting after administration of anesthetic agent nausea only, has been relieved with scope patch Status post right hip replacement Past Anesthesia History No Hx of Anesthesia Complications (with exception to PONV ) and No Family Hx of Anesthesia Complications (with exception to mother- severe PONV ) History of PONV History of PONV (improved with IV anti nausea medication and scop patch (denies side effects with scop patch)) and Hx of Motion Sickness Social History Smoking Status: Never smoker Do You Dip or Chew Tobacco: No Hx Alcohol Use: Yes Alcohol type: wine alcohol intake frequency: holidays/special occasions only Hx Substance Use: No substance use type: does not use Review of Systems - Occ snoring- hx of sleep study (many years ago)- no JOAN Patient denies chest pain, shortness of breath, dyspnea on exertion, reflux, cough, wheezing, palpitations. No hx of seizures, stroke, AL. No hx of blood clots or blood transfusions Physical Exam Vital Signs VITALS BP 131/84 P 80 TEMP 97.8 SP02 96% RESP 16 Constitutional no acute distress ENMT Mouth: no TMJ clicking Thyromental Distance: > or= 3.5 Finger Breadths (3.5) Mallampati Class: III Neck + limited neck extension (significant ) Respiratory normal respiratory effort; no respiratory distress Auscultation: lungs clear to auscultation bilaterally; no wheezes Cardiovascular Rate/Rhythm: regular rate and regular rhythm Heart Sounds: no murmur Vessels: no carotid bruit Musculoskeletal Spine: + pain with cervical ROM Extremities: extremities normal to inspection (very minimal swelling to bilateral hands ) Psychiatric Orientation: alert Lab Results Anesthesia Preop Results Results Anesthesia Widget: WBC 5.29 K/ul (4.8-10.8) 08/03/24 Hgb 13.7 g/dl (12.0-16.0) 08/03/24 Hct 39.9 % (37.0-47.0) 08/03/24 Plt 277 K/uL (130-400) 08/03/24 Na 137 mmol/L (136-145) 08/03/24 K 4.4 mmol/L (3.5-5.1) 08/03/24 Cl 103 mmol/L (98-107) 08/03/24 CO2 29 mmol/L (21-32) 08/03/24 BUN 17 mg/dl (6-23) 08/03/24 Creat 0.80 mg/dl (0.6-1.2) 08/03/24 Glucose Level 88 mg/dl (70-99(Fasting)) 08/03/24 PT 10.1 Seconds (9.0-12.0) 08/03/24 PTT 27 Seconds (21-31) 08/03/24 INR 0.9 (0.9-1.1) 08/03/24 Blood Type O Positive 08/03/24 Antibody Screen NEGATIVE 08/03/24 Testing Electrocardiogram Date: 08/03/24 Findings: + NSR @ (73bpm) Nonspecific T wave abnormality When compared to EKG from July 08, 2022- no significant change was found per cardio Chest X-Ray Date: 08/03/24 Findings: + NAD Stress Test Date: 02/12/22 Type: exercise (ECHO ) Resting EF: 55 to 60% Resting LV Function: normal Valvular Disease: no significant valvular disease Stress echocardiogram is negative for inducible ischemia at the level of exercise achieved, with normal EKG and echocardiographic response to exercise. 6 METS achieved. MPHR 86%. Exercise test was terminated due to right hip pain having achieved target heart rate. Patient describes chest tightness with deep inspiration in the postexercise recovery interval, this is reminiscent of her longstanding asthma symptoms and was atypical in character for angina.
--- NOTE | 2024-08-22 07:38 | History & Physical Report ---
Date of Service August 22, 2024 Assessment & Plan (1) Osteoarthritis of left knee: We will proceed with a left total knee arthroplasty. Postoperatively, she will be started on aspirin for DVT prophylaxis and kept overnight in the hospital for postop medical management. She plans to use home health at discharge. History of Present Illness Chief Complaint: Osteoarthritis of the left knee. Primary Care Provider: Sienna Collier DO Lisbet is a 59-year-old female who is well known to me. She has been dealing with chronic increasing left knee pain. X-rays have shown some moderate osteoarthritis of her left knee. She has had multiple injections. The injections are not helping. All of her pain is located medially. MRI confirms advanced osteoarthritis mostly of the medial compartment. After failed conservative treatment, she has elected to proceed with a left total knee arthroplasty. . Allergies Allergy/AdvReac Type Severity Reaction Status Date / Time mold Allergy Severe Asthma Verified 07/26/24 09:42 symptoms animal dander Allergy Unknown Shortness Verified 07/26/24 09:42 of breath house dust Allergy Unknown Asthma Verified 07/26/24 09:42 symptoms latex Allergy Unknown Rash Verified 07/26/24 09:42 Penicillins Allergy Unknown Unknown Verified 07/26/24 09:42 reaction (childhood) Home Medications Medication Instructions Recorded Confirmed Type acetaminophen 650 mg 650 mg PO DAILY PRN Pain 02/17/24 07/20/24 History tablet,extended release (Tylenol Arthritis Pain) calcium carbonate 600 mg PO DAILY PRN bone health 02/17/24 07/20/24 History cefdinir 300 mg capsule 300 mg PO BID sinus infection 07/20/24 07/20/24 History fluoxetine 20 mg capsule 20 mg PO QAM 07/20/24 07/20/24 History fluoxetine 40 mg capsule 40 mg PO QAM 07/20/24 07/20/24 History meloxicam 15 mg tablet 15 mg PO QAM 07/20/24 07/20/24 History pseudoephedrine-ibuprofen 30 1 cap PO UD PRN sinusitis 07/20/24 07/20/24 History mg-200 mg capsule (Advil Cold and Sinus) triamcinolone acetonide 0.5 % 1 applic topical DAILY PRN Skin 07/20/24 07/20/24 History topical cream Irritation Past Med/Surg History Problem List (Updated 08/22/24 @ 07:38 by Travon White DO) Osteoarthritis of left knee Capsular contracture of breast implant Presence of saline breast implant Patellofemoral arthralgia of both knees IT band syndrome Osteoarthritis of knees, bilateral Iliopsoas bursitis Encounter for pre-operative examination Chronic back pain Hx of colonic polyps Medical History Neuropathy of left thigh Since left NEHA (07/2022) Chronic sinusitis no illness symptoms currently Chronic back pain Neck/back Arthritis Neck/limited ROM 07/20/24 > recently bilateral hands, problems causing inability to close hands due to increased swelling Fibromyalgia Dx 20+ years ago Stable - mild muscle pain Scoliosis Anxiety Depression Asthma Exercise/environmental induced Coughing at night- secondary pets in bed Surgical History History of esophagogastroduodenoscopy (EGD) Hx of laparoscopy multiple History of total left hip replacement Left NEHA (anterior approach): SAB at L3-4 at [facility] Status post right hip replacement History of reverse total replacement of right shoulder joint (10/24/20) History of cholecystectomy History of vaginal surgery revision after vaginal hysterectomy H/O wrist surgery Bony cyst removed History of elbow surgery R/L, done in accordance with each shoulder surgery History of shoulder surgery R/L arthroscopy History of laparotomy As teen, for endometriosis Nausea and vomiting after administration of anesthetic agent nausea only, has been relieved with scope patch History of sinus surgery History of bilateral tubal ligation History of hysterectomy vaginal History of colonoscopy (2021) Family History Mother Family history of reaction to anesthesia PONV SEVERE Grandmother (Maternal) Family history of diabetes mellitus Other Family history of lung cancer Family history of throat cancer Social History Smoking Status: Never smoker Second Hand Exposure: No; Do You Dip or Chew Tobacco: No; Hx Alcohol Use: Yes Alcohol type: wine Hx Substance Use: No Preferred Language: Tajik Communication Ability: Effective Fuse Coiler Required: No Beliefs That Will Affect Care: None marital status: Current Living Situation: Spouse current occupational status: employed current occupation: [employer] Feels Safe at Home: Yes Assistive Devices: None Review of Systems All systems reviewed & are unremarkable except as noted in HPI & below. Physical Exam On physical exam the left knee, she has no deformity. She has tenderness palpation of the distal medial femoral condyle and over the medial joint line.. Constitutional WD/WN, vitals as above Eyes PERRL, conjunctivae normal, anicteric sclerae ENMT external ear and nose normal, oropharynx normal Neck trachea midline, no thyromegaly Respiratory normal respiratory effort Cardiovascular RRR, no murmur, no edema Gastrointestinal (Abdomen) normal bowel sounds, soft, nontender, no hepatosplenomegaly Psychiatric A+Ox3, euthymic affect Results & Data Results & Data Laboratory Results . Diagnostic Findings MRI of the left knee shows advanced medial compartmental arthritis with joint space narrowing and loss of cartilage with bony edema.. PG Care Time/CCT Total # of Minutes Spent Total Time Spent with Patient: Total time spent is greater than 50% in coordination of care (as documented) at patient's floor/unit and/or counseling patient: Coding Level of Care Code None Diagnoses Osteoarthritis of left knee M17.12
[~2024-08-27 10:52] MED LIST changes: -ACETAMINOPHEN 500 MG TAB PO SCH; -FAMOTIDINE 20 MG TAB PO SCH; -GABAPENTIN 600 MG DOSE PO SCH; -LR 15ML/HR IV SCH; -LR 60ML/HR IV SCH; -MIDAZOLAM HCL 1 MG/ML 2ML VIAL ONE; -ORTHO JOINT MIX INFIL SCH; +ROPIVACAINE 0.5% 5 MG/ML 30 ML VIAL ONE; -TRANEXAMIC ACID 1,000 MG **IV Intra-op IV SCH; -TRANEXAMIC ACID 1,000 MG **IV Pre-op IV SCH; -ceFAZolin 2000MG 2,000 MG/15 ML SYR IV SCH; -dexAMETHasone 4 MG TAB PO SCH
[2024-08-27] MEDS: FAMOTIDINE 20 MG TAB PO SCH (11:21)
[2024-08-27] MEDS: GABAPENTIN 600 MG DOSE PO SCH (11:21)
[2024-08-27] MEDS: ACETAMINOPHEN 500 MG TAB PO SCH ×2 (11:21→21:22)
[2024-08-27] MEDS: dexAMETHasone**PF** 10 MG/ML VIAL IV SCH (11:22)
[2024-08-27] MEDS: LR 500ML BOLUS, THEN 15ML/HR IV SCH (11:22)
[2024-08-27] MEDS: LR 60ML/HR IV SCH (11:22)
[2024-08-27] MEDS ORDERED: fentaNYL citrate PF 100 MCG/2 ML VIAL IV PRN (12:15)
[2024-08-27] MEDS ORDERED: ONDANSETRON INJ 2 MG/ML 2 ML VIAL IV PRN ×2 (12:15→16:38)
[2024-08-27] MEDS ORDERED: ATROPINE SULFATE 0.1 MG/ML 10ML SYR IV PRN (12:15)
[2024-08-27] MEDS ORDERED: ePHEDrine sulfate 50 MG/ML AMP IV PRN (12:15)
--- NOTE | 2024-08-27 12:15 | History & Physical Bridge Note ---
Date of Service August 27, 2024 History & Physical Bridge Note I have examined the patient, reviewed the History & Physical and in the interval since the performance of the History & Physical I have noted the following changes of clinical significance: no changes noted
[2024-08-27] MEDS ORDERED: fentaNYL citrate PF 100 MCG/2 ML VIAL ONE (12:20)
[2024-08-27] MEDS ORDERED: MIDAZOLAM HCL 1 MG/ML 2ML VIAL ONE (12:20)
[2024-08-27] MEDS ORDERED: LIDOCAINE 2% 2 ML VIAL/AMP(20MG/ML) INFIL ONE (12:46)
[2024-08-27] MEDS: TRANEXAMIC ACID 1,000 MG **IV Pre-op IV SCH (12:46)
[2024-08-27] MEDS: ceFAZolin 2000MG 2,000 MG/15 ML SYR IV SCH (12:58)
[2024-08-27] MEDS: ROPIV 0.5% 246mg, Ketorolac 30mg, EPINEPHrine 0.5mg in NSS INFIL SCH (13:33)
[2024-08-27] MEDS: ORTHO JOINT ANESTHETIC ONE (13:33)
[2024-08-27] MEDS: TRANEXAMIC ACID 1,000 MG **IV Intra-op IV SCH (13:58)
--- NOTE | 2024-08-27 14:12 | Operative Report ---
PG Post Operative Report Pre & Post Diagnosis Operation Date: 08/27/24 13:00 Pre-Op Diagnosis: Left Knee Osteoarthritis Post-Op Diagnosis: Left Knee Osteoarthritis I identified the patient and participated in the time-out.: Yes Procedure Operation Date: 08/27/24 13:00 Actual Procedures p Left Total Knee Arthroplasty(Left) - Travon White DO Surgeon Travon White DO Crab Steamer Clifford Alaniz PA-C Estimated Blood Loss 50 Findings Consistent with Post-Op Diagnosis Specimens Left femoral and tibial bone Description of Procedure Implants used: I used a Chago Persona total knee arthroplasty system with a size 7 narrow femur, E tibia, 28 oval patella, and a size 13 medial congruent polyethylene bearing. All components were cemented in place with Biomet cement. Lisbet arrived [facility] for the above procedure. She was seen in the preoperative holding area and the operative extremity was identified and signed. She was given a preoperative antibiotic, TXA, a spinal anesthetic and an adductor nerve block. She was taken back to the operating room and laid on the table in supine position. She was given basic sedation. The operative knee was then prepped and draped in sterile fashion. A timeout was done, and the patient and the operative extremity was properly identified. A midline incision was made directly over the patella. Dissection was taken down to the extensor mechanism. A medial parapatellar arthrotomy was used. The medial retinaculum was released and the fat pad was mostly excised. The knee was flexed and the ACL, PCL, and meniscus were removed. A drill was sent down the center of the femoral canal followed by an intramedullary devin. Off that devin a distal femoral cutting block was placed. 9 mm was resected off the distal femur at 5 of valgus. A posterior referencing AP sizing guide was then placed on the distal femur. The femur measured to be a size 7. 2 drill holes were placed in 3 of external rotation. A 4-in-1 cutting block was then impacted into place. Anterior, posterior, and chamfer cuts were then made. The proximal tibia was then exposed. An external tibial alignment guide was placed. A tibial cut guide was then anchored in place and the proximal tibia was then resected. The posterior aspect of the knee was then opened up and any additional meniscus fragments and osteophytes were removed. The tibia measured to be a size E. The tibial plate was then placed in the appropriate rotation and the tibia was drilled and punched. Trial components were then placed. I used a size 13 medial congruent polyethylene insert. The knee was brought through a full range of motion and felt to be stable. The peg holes for the femoral component were then drilled. The patella was then everted and 9 mm was resected off the posterior aspect of the patella. The patella measured to be a size 28 oval. 3 peg holes were then drilled. A trial patella was placed. The knee was once again brought through a full range of motion and felt to be stable. Trial components were then removed. The surrounding soft tissues were injected with 100 cc of an orthopedic pain control cocktail. All components were then cemented into place with Biomet cement. The final polyethylene insert was then snapped into place. Once cement was dry the tourniquet was deflated. Hemostasis was obtained. A dilute betadyne lavage was then done for 3 minutes. The joint was then irrigated with normal saline solution. The medial parapatellar arthrotomy was then closed with #1 Vicryl suture. The skin was closed with 2-0 Vicryl, 3-0V lock suture, and monique. A soft compressive dressing was placed. She was then transferred to a hospital bed and taken to the postanesthesia care unit in stable condition. She tolerated the procedure well. Clifford Alaniz PA-C, was present for the entire procedure. He was critical for patient positioning, prepping, draping, retraction exposure, wound closure and application of sterile dressing. I attest to the content of the Intraoperative Record and any orders documented therein. Any exceptions are noted below.
--- NOTE | 2024-08-27 14:59 | Anesthesiology Progress Note ---
Date of Service August 27, 2024 Anesthesia Post Procedure Vital Signs Vital Signs: Temp Pulse Pulse Resp BP Pulse Ox O2 Del Method 08/27/24 14:40 57 L 20 109/70 96 Room Air 08/27/24 14:33 97.9 F 61 16 118/71 100 Oxymask 08/27/24 11:05 98.2 F 69 18 149/91 H 96 Room Air O2 Flow Rate 08/27/24 14:40 08/27/24 14:33 10 08/27/24 11:05 Pain Intensity Left Knee: Pain Intensity: 3 Transfer of Care Handoff Completed per policy Notes Mental Status: alert / awake / arousable and participated in evaluation Patient Amnestic to Procedure: Yes Nausea / Vomiting: adequately controlled Pain: adequately controlled Airway Patency, RR, SpO2: stable & adequate BP & HR: stable & adequate Hydration State: stable & adequate Neuraxial Anesthesia: was administered and sensory block is resolving Anesthetic Complications: no major complications apparent and Pt Satisfied with anesthetic care
[2024-08-27] MEDS ORDERED: MAGNESIUM HYDROXIDE SUSP 30 ML UDC PO PRN (16:38)
[2024-08-27] MEDS ORDERED: METOCLOPRAMIDE HCL INJ 5 MG/ML 2 ML VIAL IV PRN (16:38)
[2024-08-27] MEDS ORDERED: bisacodyL 10 MG SUPP PR PRN (16:38)
[2024-08-27] MEDS ORDERED: NALOXONE HCL 0.4 MG/1 ML VIAL/CARP IV PRN (16:38)
[2024-08-27] MEDS ORDERED: HYDROmorphone INJ 0.5 MG/0.5 ML SYR IV PRN (16:38)
--- NOTE | 2024-08-27 16:43 | XRay Report ---
Clinical History: Postoperative examination 2 views of the left knee are submitted for review. Comparison is made to prior examination dated 05/09/2024 Findings: There is a new left knee total arthroplasty in expected position. There is no definite sign of infection or loosening. No other osseous abnormality is identified. There are surgical skin moniuqe. Air is seen within the soft tissues, consistent with recent surgery Impression: New left knee replacement Electronically signed by Maurilio Proctor 08-27-2024 4:43 PM
[2024-08-27] MEDS: KETOROLAC TROMETHAMINE 15 MG/ML VIAL IV SCH (17:36)
[2024-08-27] MEDS: SODIUM CHLORIDE 0.9% 1,000 ML IV SCH (17:40)
[2024-08-27] MEDS: SENNA 8.6 MG TAB PO SCH (21:21)
[2024-08-27] MEDS: ASPIRIN 81 MG ECTAB PO SCH (21:21)
[2024-08-27] MEDS: DOCUSATE SODIUM 100 MG CAP PO SCH (21:21)
[2024-08-27] MEDS: ceFAZolin 1000MG 1,000 MG/7.5 ML SYR IV SCH (21:23)
[2024-08-27] MEDS: oxyCODONE HCL IR 5 MG TAB (IMMEDIATE RELEASE) PO PRN (22:23)
[2024-08-28 07:42] VITALS: BP 127/79; PULSE 70; RESP 18; TEMP 98.1; O2SAT 97
[2024-08-28] MEDS: MULTIVITAMIN TAB PO SCH (08:07)
[2024-08-28] MEDS: dexAMETHasone 4 MG TAB PO SCH (08:08)
[2024-08-28] MEDS: FLUoxetine HCL 20 MG CAP PO SCH ×2 (08:08)
--- NOTE | 2024-08-28 12:53 | Orthopedic Progress Note ---
Date of Service August 28, 2024 Assessment & Plan (1) Status post left knee replacement: Assessment: Status post left total knee arthroplasty. Plan: Overall, she is doing quite well today with good pain control left knee. She will work with physical therapy later this morning to work on ambulation range of motion exercises. She was started on aspirin for DVT prophylaxis. She will be discharged home later this morning pending formal physical therapy evaluation recommendation. Dressings can be changed after completion of physical therapy and prior to discharge. Discharge medication was discussed with the patient is entirely with verbal understanding. She will follow-up with orthopedics in 2 to 3 weeks for continued postoperative management or sooner if needed. Subjective . Lisbet was seen this morning resting comfortably in no apparent distress. She notes that her pain is well-controlled to the left knee. She has been up and out of bed with no significant issues. She has yet to work physical therapy this morning. She denies any concerns with her surgical incision site. She denies any active bleeding, discharge, or signs infection. She denies any other concerns today. Review of Systems All systems reviewed & are unremarkable except as noted in HPI & below. Physical Exam . On physical examination of the left knee, the dressings are clean, dry, in place with no signs of active bleeding, discharge, or signs of infection. Her leg is on full extension. Limited range of motion strength secondary to postoperative stiffness soreness. Calf soft nontender to palpation. Negative Homans' sign. Intact plantarflexion dorsiflexion of the left ankle. +2 DP and PT pulses. Less than 2-second capillary refill. Normal sensation. N eurovascular intact. Results & Data Results & Data Laboratory Results . Diagnostic Findings . Knee X-Ray 08/27/24 14:36 Clinical History: Postoperative examination 2 views of the left knee are submitted for review. Comparison is made to prior examination dated 05/09/2024 Findings: There is a new left knee total arthroplasty in expected position. There is no definite sign of infection or loosening. No other osseous abnormality is identified. There are surgical skin monique. Air is seen within the soft tissues, consistent with recent surgery Impression: New left knee replacement Electronically signed by Maurilio Proctor 08-27-2024 4:43 PM PG Care Time/CCT Total # of Minutes Spent Total Time Spent with Patient: Total time spent is greater than 50% in coordination of care (as documented) at patient's floor/unit and/or counseling patient: Coding Level of Care Code 37868 Post Operative Follow-Up Diagnoses Status post left knee replacement Z96.652
--- NOTE | 2024-08-28 12:54 | Discharge Summary ---
Date of Service August 28, 2024 Admission HPI (Per Admitting) Lisbet is a 59-year-old female who is well known to me. She has been dealing with chronic increasing left knee pain. X-rays have shown some moderate osteoarthritis of her left knee. She has had multiple injections. The injections are not helping. All of her pain is located medially. MRI confirms advanced osteoarthritis mostly of the medial compartment. After failed conservative treatment, she has elected to proceed with a left total knee arthroplasty. . Admission Exam (Per Admitting) On physical exam the left knee, she has no deformity. She has tenderness palpation of the distal medial femoral condyle and over the medial joint line.. Principal Diagnosis Same as "Discharge Diagnosis" noted below under Discharge Instructions. Discharge Exam . On physical examination of the left knee, the dressings are clean, dry, in place with no signs of active bleeding, discharge, or signs of infection. Her leg is on full extension. Limited range of motion strength secondary to postoperative stiffness soreness. Calf soft nontender to palpation. Negative Homans' sign. Intact plantarflexion dorsiflexion of the left ankle. +2 DP and PT pulses. Less than 2-second capillary refill. Normal sensation. Neurovascular intact. Discharge Data Procedures Performed Operation Date: 08/27/24 13:00 Actual Procedures p Left Total Knee Arthroplasty(Left) - Travon White DO Ordered Studies 08/27/24 05:00 US - OR guided needle placemen Routine Hospital Course (1) Status post left knee replacement: On August 27, 2024 Lisbet arrived at [facility] and underwent a left total knee arthroplasty performed by Dr. White with no complications. She has spinal anesthetic. Postoperatively, she was started on aspirin for DVT prophylaxis and transferred to the general orthopedic floor in stable condition. Her hospital course was uneventful. On postoperative day #1, her vital signs were stable and her pain was well-controlled. She participated well with physical therapy working on ambulation and range of motion exercises. She was then discharged home in stable condition. She will follow-up with orthopedics in 2 to 3 weeks for continued postoperative management or sooner if needed. PG Care Time/CCT Total # of Minutes Spent Total Time Spent with Patient: Total time spent is greater than 50% in coordination of care (as documented) at patient's floor/unit and/or counseling patient: Discharge Plan Discharge Items Patient Disposition: Home - Home Health Services Reason For Visit: Left Knee Arthritis Discharge Diagnosis: Same Activity: Per Instructions section Non-emergency contact: Surgeon Call non-emergency contact if: your temperature is above 101.5, your wound has increased redness, your wound has increased drainage and your wound pain has increased Follow-up/Referrals: Sienna Collier, [Primary Care Provider] - Diet: Regular Addtl Attending Provider Instructions: Activity and Therapy Recommendations: * If you are using [facility] then therapy will be provided at your home until they feel you have accomplished all of your goals. * If you are using [facility] then Physical Therapy will be provided until they feel you are ready to start Outpatient Physical Therapy. * If you are not using home therapy then Outpatient Physical Therapy should start about 3-5 days from your day of surgery. Therapy will last about 6-10 weeks * It is important not to put a pillow under your knee when you are relaxing or sleeping. It is just as important to make sure you are getting your knee perfectly straight as it is to regain your knee bend. * You were shown a series of exercises in the hospital. Do these exercises three times each day including the exercises you were shown in physical therapy. * Get up and walk several times each day. For the first four weeks, try not to stand or walk for more than one hour at a time. If you do stand or walk for more than one hour, you will not hurt anything, but your leg will likely swell. * As you feel comfortable, you may change from the walker or crutches to a cane and then to independent walking. Medications: * Narcotic You will likely be sent home from the hospital with a prescription for the narcotic pain medication that worked best throughout your stay. * Cefadroxil -take the antibiotic twice a day for 10 days to help prevent infection. * Aspirin Most patients will be required to take Aspirin 81mg twice a day for 6 weeks after surgery. This is obtained [id number] and a prescription is not necessary. * Other medications may be prescribed for specific circumstances. If you have any questions, please call the office at . * Resume previous home medications unless otherwise instructed TEDs/Elastic Stockings: The white elastic stockings help limit swelling and prevent blood clots from forming in your legs.~ The more you wear them, the more they work. Wear them for 2 weeks. Dressing Care: The dressing can be changed after physical therapy on postop day #1. Daily dry dressing changes for a few days, especially if the incision is still draining some. If the incision is not draining then you may leave the monique open to air. If there is a little bit of drainage or if the monique are getting stuck on your clothing then cover the incision with a dry dressing. The monique will be removed at your 2 week follow-up appointment. Showering: You may shower 5 days from the day of surgery as long as the incision is no longer draining. You may shower with the monique exposed. Let soapy water run over the monique and pat them dry. Do not scrub or soak the incision. Diet: You may resume your previous diet. Things To Watch For: * Drainage from the incision site that occurs more than one week after your surgery. * Increased redness at the incision site. * Fever above 102 degrees Fahrenheit. * Unusual chest pain or shortness of breath. * Call [facility] at with any of the above problems Follow-Up Visit: Follow-up with Dr. White's office 2-3 weeks after your day of surgery. We will remove your monique and answer any questions. If you have any additional questions or concerns, Dr White is usually in the office at the same time and will be available An appointment was probably scheduled when you signed-up for surgery in the office. If you have any questions call Office Instructions: More detailed instructions as well as Frequently Asked Questions were provided in a folder by our office when you signed-up for surgery. Please review these instructions when you get home. If you have any further questions or concerns, please feel free to call the office at [phone] Pending Studies at Discharge: No Stand-Alone Forms: My [facility] Results United, Smoking Cessation Medications and DC Order Prescriptions: New aspirin 81 mg Tablet,Delayed Release (Dr/Ec) 81 mg PO BID 42 Days Qty: 0 0RF cefadroxil 500 mg capsule 500 mg PO BID 10 Days Qty: 20 0RF oxycodone 5 mg tablet 5 mg PO Q6H PRN (Reason: pain) Qty: 30 0RF Continued acetaminophen [Tylenol Arthritis Pain] 650 mg tablet extended release 650 mg PO DAILY PRN (Reason: Pain) calcium carbonate 600 mg calcium (1,500 mg) tablet 600 mg PO DAILY PRN (Reason: bone health) fluoxetine 40 mg capsule 40 mg PO QAM Rx Instructions: dose totals 60mg triamcinolone acetonide 0.5 % cream 1 applic TOPICAL DAILY PRN (Reason: Skin Irritation) fluoxetine 20 mg capsule 20 mg PO QAM Rx Instructions: dose to total 60mg Held Advil Cold and Sinus 30-200 mg Capsule 1 cap PO UD PRN (Reason: sinusitis) Hold Instructions: Resume on 10/10/24. meloxicam 15 mg tablet 15 mg PO QAM Hold Instructions: Resume on 10/10/24. Admission Data Admit Date/Time: 08/27/24 14:36 Attending Provider: Travon White Admit Provider: Travon White Primary Care Provider: Sienna Collier Other Providers: [facility]; [facility] Other Interventions: Discharge Summary Assessment (RN) Last Done: 08/28/24 09:13
== END 2024-08-28 11:44 | disposition home health service (06) ==
LOC: 3E 10:52 → ASU 10:52
DX: M79.7 Fibromyalgia; Z88.8 Allergy status to other drugs, medicaments and biological substances; Z91.040 Latex allergy status; Z88.0 Allergy status to penicillin; M41.9 Scoliosis, unspecified; M17.12 Unilateral primary osteoarthritis, left knee; J45.909 Unspecified asthma, uncomplicated; Z91.048 Other nonmedicinal substance allergy status